=== PATIENT | male | born 1985 | race Caucasian/White ===

== ENCOUNTER 2022-10-25 21:35 | Emergency (ER) | payer SELFPAY ==
[~2022-10-25] VITALS: Ht 182.9 cm; Wt 86.2 kg
[2022-10-25] MEDS ORDERED: predniSONE 20 MG TABLET ONE (23:17)
[2022-10-25] MEDS ORDERED: ALBUTEROL FS 2.5 MG/3 ML VIAL.NEB ONE (23:24)
[2022-10-25] MEDS ORDERED: IPRATROPIUM NEB FS 0.5 MG/2.5 ML AMPUL.NEB ONE ×2 (23:24→23:38)
[2022-10-25 23:25] VITALS: O2SAT 94
[2022-10-25] MEDS ORDERED: ALBUTEROL FS 2.5 MG/3 ML VIAL.NEB NEB ONE (23:30)
[2022-10-25] MEDS ORDERED: predniSONE 20 MG TABLET PO ONE (23:30)
[2022-10-25] MEDS ORDERED: IPRATROPIUM NEB FS 0.5 MG/2.5 ML AMPUL.NEB NEB ONE (23:30)
[2022-10-26 00:30] VITALS: O2SAT 100; O2SAT 99
[2022-10-26] MEDS ORDERED: IPRA3AMP23 IH (01:12)
[2022-10-26] MEDS ORDERED: NEBU-171 MC (01:12)
[2022-10-26] MEDS ORDERED: FLUT10.62 INH (01:12)
[2022-10-26] MEDS ORDERED: ALBU18HF2 INH (01:12)
[2022-10-26] MEDS ORDERED: PRED20TA PO (01:12)
[2022-10-26 01:21] VITALS: BP 147/82; TEMP 98.5; O2SAT 94
== END 2022-10-26 01:22 | disposition home or self-care (01) ==
LOC: ER 21:39
DX: J45.901 Unspecified asthma with (acute) exacerbation (principal); Z79.899 Other long term (current) drug therapy
CPT/HCPCS: 99285; 94799; 94644; J7512